=== PATIENT | female | born 1950 ===

== ENCOUNTER 2018-03-23 12:45 | Inpatient (IN) | payer OTHER ==
[~2018-03-23] VITALS: Ht 149.9 cm; Wt 73.5 kg
[2018-03-27] MEDS ORDERED: MOBIC7.5 M1 PO (15:00)
[2018-03-27] MEDS ORDERED: ASA81 MG PO (15:00)
[2018-03-27] MEDS ORDERED: VERAPAMIL ER180 MG PO (15:00)
[2018-03-27] MEDS ORDERED: LASIX20 MG PO (15:00)
[2018-03-30] MEDS ORDERED: COLACE100 MG PO (12:52)
[2018-03-30] MEDS ORDERED: NEURONTIN800 MG PO (12:52)
[2018-03-30] MEDS ORDERED: AMOX-CLAV 875-1 EACH PO (12:53)
[2018-03-30] MEDS ORDERED: PERCOCET 5-3251 EACH PO (12:54)
[2018-03-30] MEDS ORDERED: CLONAZEPAM1 MG PO (12:54)
== END 2018-03-31 17:37 | DRG 460 ==
LOC: PED 03-30 05:05 → O/R 03-30 05:05 → PED 03-30 17:33
PROVIDERS: Orthopaedic Surgery Orthopaedic Surgery of the Spine
PROC: 0SG00AJ Fusion of Lumbar Vertebral Joint with Interbody Fusion Device, Posterior Approach, Anterior Column, Open Approach (ICD-10-PCS; 2018-03-30)
PROC: 0ST20ZZ Resection of Lumbar Vertebral Disc, Open Approach (ICD-10-PCS; 2018-03-30)
PROC: 07DS3ZZ Extraction of Vertebral Bone Marrow, Percutaneous Approach (ICD-10-PCS; 2018-03-30)
PROC: 0SG00A0 Fusion of Lumbar Vertebral Joint with Interbody Fusion Device, Anterior Approach, Anterior Column, Open Approach (ICD-10-PCS; principal; 2018-03-30 09:45)
DX: M48.061 Spinal stenosis, lumbar region without neurogenic claudication (principal); M43.16 Spondylolisthesis, lumbar region; M51.26 Other intervertebral disc displacement, lumbar region; I10 Essential (primary) hypertension